=== PATIENT | female | born 2000 | race Caucasian/White ===

== ENCOUNTER 2025-02-25 09:44 | Emergency (ER) | payer OTHER, SELFPAY ==
[2025-02-25 10:22] VITALS: BP 130/82; PULSE 65; RESP 16; TEMP 36.9; O2SAT 98; BMI 17.6
--- NOTE | 2025-02-25 10:24 | ED.ABDPAIN ---
HPI - Abdominal Pain General Chief Complaint: Abdominal Pain Stated Complaint: Abd pain Time Seen by Provider: 02/25/25 11:41 Source: patient Mode of arrival: ambulatory Limitations: no limitations History of Present Illness ED Provider: HPI narrative: 24-year-old, finally has insurance, has a PCP appointment coming up in the next 1-2 weeks, postprandial abdominal pain for the past 1 year, worse at night, poor appetite states her dad has GERD she took his meds without improvement. No vaginal bleeding or fevers or chills. Related Data Previous Rx's ?Medication ?Instructions ?Recorded famotidine 40 mg tablet 40 mg PO BEDTIME 30 days #30 tabs 02/25/25 sucralfate 1 gram tablet (Carafate) 1 g PO Q6H 7 days #28 tabs 02/25/25 Allergies Allergy/AdvReac Type Severity Reaction Status Date / Time No Known Allergies Allergy Unverified 02/25/25 10:24 [No Known Allergies*] Review of Systems Constitutional: Reports as per HPI [facility] Social History Social History Do you have a plan to hurt others: No Plan Physical Exam ED Vital Signs: Vital Signs - 24 hr 02/25/25 10:22 Temperature 98.4 F Pulse Rate 65 Respiratory Rate 16 Blood Pressure 130/82 Pulse Oximetry 98 Oxygen Delivery Method Room Air BMI result Body Mass Index 17.6 Const Other: Gen: ?Overall well-appearing patient CV: RRR, no obvious murmurs appreciated Resp: ?No wheezing rales rhonchi no stridor moving air well Abd: ?Bowel sounds are present, negative Perez's sign, negative Rovsing's, epigastric tenderness mild MSK: FROM, strength 5/5 all extremities Skin: Warm, dry, intact, Neuro: ?Alert and oriented x3, moving upper and lower extremities symmetrically, no obvious facial asymmetry noted Course Course Course Narrative: 02/25/25 1024 ALLAN Enriquez This is a Rapid Medical Examination (RME) performed by Dago Pressley PA-C in triage. Full HPI, ROS, assessment and treatment plan per primary provider in the Main ED. Hx: 24 yo healthy F here w/ mom for eval of intermittent epigastric abd pain x months. assoc nausea w/o vomiting. scared to eat d/t pain, causing her to lose weight. does not have PCP to follow up with. PE/vitals: thin appearing Plan: screening labs, UA Medical Decision Making Medical Decision Making MDM Narrative: Blood work reassuring nothing to suspect some of the differential diagnoses as below this is a chronic issue, long discussion regarding dietary changes for acid reflux, GERD and she has an appointment coming up with the PCP, she did endorse poor diet Differential Diagnosis Differential Diagnoses: The differential diagnosis associated with the presentation includes Cholecystitis, pancreatitis, hepatitis, gastritis, cholangitis, choledocholithiasis, SBO, ACS Lab Data 02/25/25 10:48 02/25/25 10:48 Labs: Lab Results 02/25/25 Range/Units 10:48 WBC 7.3 (4.8-10.8) X10*3/uL RBC 4.41 (4.20-5.50) X10*6/uL Hgb 13.2 (12.0-16.0) g/dl Hct 40.2 (37.0-47.0) % MCV 91.2 (80.0-98.0) fL MCH 29.9 (27.0-33.0) pg MCHC 32.8 (31.0-35.0) g/dl RDW 13.6 (11.0-16.0) % Plt Count 256 (160-400) X10*3/uL MPV 10.0 (9.4-12.3) fL Immature Gran % (Auto) 0.3 (0.0-0.4) % Neut % (Auto) 56.9 (45-73) % Lymph % (Auto) 31.8 (20-40) % [place] % (Auto) 7.5 (2-11) % Eos % (Auto) 3.0 (0-4) % Baso % (Auto) 0.5 (0-2) % Lymph # (Auto) 2.3 (1.2-4.9) X10*3/uL [place] # (Auto) 0.6 (0.1-1.2) X10*3/uL Eos # (Auto) 0.2 (0.0-0.4) X10*3/uL Baso # (Auto) 0.0 (0.0-0.2) X10*3/uL Abs Immat Gran (auto) 0.02 (0.00-0.03) X10*3/uL Absolute Neuts (auto) 4.1 (2.0-8.3) x10*3/uL Absolute Nucleated RBC 0.000 (0.0-0.012) X10*3/uL Nucleated RBC % (auto) 0.0 (0.0-0.2) /100WBC Sodium 139 (135-145) mmol/L Potassium 3.5 (3.3-5.1) mmol/L Chloride 108 (96-108) mmol/L Carbon Dioxide 25 (22-29) mmol/L Anion Gap 10 L (12-20) BUN 15 (9-16) mg/dL Creatinine 0.88 (0.5-1.4) mg/dL Estim Creat Clear Calc 68.9 Estimated GFR > 60 Random Glucose 90 (60-115) mg/dL Calcium 9.9 (8.4-10.2) mg/dL Magnesium 1.9 (1.6-2.6) mg/dL Total Bilirubin 0.3 (0.0-1.0) mg/dL AST 21 (5-31) U/L ALT 14 (0-31) U/L Alkaline Phosphatase 55 (39-117) U/L Total Protein 7.9 (6.5-8.0) g/dL Albumin 5.2 H (3.5-5.0) g/dL Lipase 35 (8-78) U/L Discharge Plan Discharge Clinical Impression: Abdominal pain, epigastric Patient Disposition: Home, Self-Care Additional Instructions: For the next 1 week take a g of Carafate with food up to 4 times a day, remember we have discussed you need to have breakfast before he have any caffeine, just look up what constitutes a healthy diet, avoid anything spicy or fatty, I would avoid any acidic type of foods as well, and he will see your primary care physician in the week or 2, your blood work is reassuring there is no evidence that this is related to gallbladder your liver with the pancreas, and your exam and history is consistent with gastric irritation, your PCP may refer her to GI for endoscopy, H pylori testing neither which are done in ER. Any other issues or concerns come back to the ER Prescriptions: New sucralfate [Carafate] 1 gram tablet 1 g PO Q6H 7 Days Qty: 28 0RF famotidine 40 mg tablet 40 mg PO BEDTIME 30 Days Qty: 30 0RF Print Language: Croatian
[2025-02-25 10:54] LABS: MANUAL DIFF FLAG NO
[2025-02-25 10:59] LABS: Basophils Percent Auto 0.5 % (0-2); Eosinophils Absolute Auto 0.2 X10*3/uL (0.0-0.4); Hematocrit 40.2 % (37.0-47.0); Hemoglobin 13.2 g/dl (12.0-16.0); Imm Gran Abs Auto 0.02 X10*3/uL (0.00-0.03); Imm Gran Pct Auto 0.3 % (0.0-0.4); Lymphocytes Absolute Auto 2.3 X10*3/uL (1.2-4.9); Lymphocytes Percent Auto 31.8 % (20-40); Mean Corpuscular HGB Conc 32.8 g/dl (31.0-35.0); Mean Corpuscular Hemoglobin 29.9 pg (27.0-33.0); Mean Corpuscular Volume 91.2 fL (80.0-98.0); Monocytes Absolute Auto 0.6 X10*3/uL (0.1-1.2); Monocytes Percent Auto 7.5 % (2-11); Neutrophils Absolute Auto 4.1 x10*3/uL (2.0-8.3); Neutrophils Percent Auto 56.9 % (45-73); Platelet Count 256 X10*3/uL (160-400); Red Blood Count 4.41 X10*6/uL (4.20-5.50); Red Cell Distribution Width 13.6 % (11.0-16.0); White Blood Count 7.3 X10*3/uL (4.8-10.8)
[2025-02-25 11:16] LABS: Alanine Aminotransferase 14 U/L (0-31); Albumin Level 5.2 g/dL (3.5-5.0); Alkaline Phosphatase 55 U/L (39-117); Anion Gap 10 (12-20); Aspartate Amino Transferase 21 U/L (5-31); Bilirubin Total 0.3 mg/dL (0.0-1.0); Blood Urea Nitrogen 15 mg/dL (9-16); Calcium 9.9 mg/dL (8.4-10.2); Carbon Dioxide 25 mmol/L (22-29); Chloride 108 mmol/L (96-108); Creatinine Clr Calc Pharmacy 68.9; Estimated Glomerular Filt Rate > 60; Glucose Random 90 mg/dL (60-115); Lipase 35 U/L (8-78); Magnesium 1.9 mg/dL (1.6-2.6); Potassium 3.5 mmol/L (3.3-5.1); Sodium 139 mmol/L (135-145); Total Protein 7.9 g/dL (6.5-8.0)
[2025-02-25] MEDS: Famotidine 20 MG TABLET PO (12:11)
[2025-02-25] MEDS: Lidocaine HCl Viscous 2 % 15 ML SOLUTION PO (12:11)
[2025-02-25] MEDS: Magnesium Hydrox/Alum Hydrox 30 ML ORAL.SUSP PO (12:11)
[2025-02-25 12:22] VITALS: BP 125/77; PULSE 68; RESP 16; TEMP 37; O2SAT 97
[2025-02-25 12:25] VITALS: BP 125/77; PULSE 68; RESP 16; TEMP 37; O2SAT 97
== END 2025-02-25 12:25 | disposition home or self-care (01) ==
PROVIDERS: Physician Assistant Medical; Emergency Provider Emergency Medicine
DX: R10.13 Epigastric pain (principal)
CPT/HCPCS: 36415; 80053; 83690; 83735; 85025; 99283; 99284

== ENCOUNTER 2025-03-07 13:34 | Outpatient (AMB) | payer OTHER, MEDICAID, SELFPAY ==
--- NOTE | 2025-03-07 13:38 | A.OFFPC_ITS ---
Vital Signs 03/07/25 13:41 Height 5 ft 1.42 in Weight 94 lb 8 oz BMI 17.6 BP 120/60 Blood Pressure Location Lt brachial Position Sitting Pulse 81 Pulse Source Pulse Oximeter Temp 97.1 F Temp Source Temporal Artery Scan Pulse Oximetry (%) 99 Oxygen Delivery Method Room Air Intake Visit Reasons: establish care Intake Note: Patient is a new patient here to establish care for wellness visit. Transferring care from [facility]. Medical records have been requested and have not received. Dice Dealer Required: No Tc Operator: Present Accompanied by: Mother Allergies No Known Allergies (No Known Allergies*) Allergy (Verified 03/07/25 14:05) Medication List - Last Reconciled 03/07/25 by Shreya Casas PA-C famotidine 40 mg PO BEDTIME 30 days sucralfate (Carafate) 1 g PO Q6H 7 days Tobacco use date assessed: 03/07/25 Dental Screening Dental Screen Date: 03/07/25 Did you have a dental visit in the last 12 months?: Yes Did you have a dental problem in the last 6 months where you did not have access to dental care?: No Was dental information given to patient?: Patient has dentist HPI establish care HPI Details 24-year-old female coming to the office for the 1st time.? She was seen in [facility] ED 02/25/2025 for epigastric pain given 1 week of Carafate and send prescription for famotidine.? They recommended H pylori testing and possible referral to GI. Presenting with symptoms suggestive of gastroesophageal reflux disease. She reports experiencing intense acid reflux-like symptoms for almost a year, which have been affecting her sleep and work. She was prescribed famotidine and advised dietary modifications, which have provided some relief. No imaging was performed during her ER visit, and she was advised to continue dietary restrictions. The patient also reports nausea and vomiting, which occur almost daily, and has led to weight loss. A possible peptic ulcer disease is considered due to the persistent pain and nausea. Anxiety is noted, with the patient expressing mild symptoms but no current treatment beyond counseling. The patient has a history of irregular menstruation, previously managed with control, but currently experiencing occasional skipped cycles. [facility] Surgical History No pertinent past surgical history Family History Maternal Grandfather Skin cancer Prostate cancer Paternal Grandmother Breast cancer Social History Housing: Apartment Alcohol intake: never Patient Tobacco Use Status: Never used Tobacco e-Cigarette/Vaping Use: Never Used Second Hand Smoke Exposure: No Substance Use Type: Marijuana service: No Current occupational status: employed Current occupation: [employer] Cognitive needs: No Hearing needs: No Vision needs: No Female Reproductive History Menstrual control method: none Total pregnancies: 0 History of abnormal pap smear: No History of STI: No Questionnaire PHQ-9 Over the last 2 weeks, how often have you been bothered by any of the following problems? 1. Little interest or pleasure in doing things: not at all 2. Feeling down, depressed, or hopeless: not at all 3. Trouble falling or staying asleep, or sleeping too much: not at all 4. Feeling tired or having little energy: not at all 5. Poor appetite or overeating: not at all 6. Feeling bad about yourself - or that you are a failure or have let yourself or your family down: not at all 7. Trouble concentrating on things, such as reading the newspaper or watching television: not at all 8. Moving or speaking so slowly that other people could have noticed. Or the opposite - being so fidgety or restless that you have been moving around a lot more than usual: not at all 9. Thoughts that you would be better off or of hurting yourself in some way: not at all Total score: 0 Depression Screening Interpretation: Negative Depression Screening Done: Yes 79447 - PHQ-9 Billing: Yes Source: Developed by Drs. Luis Felipe Goldstein, Pat Servin, Oswaldo Thao and colleagues, with an educational margie from [employer]. Thrive Questionnaire Date Thrive assessed: 03/07/25 I am a: Patient What is your living situation today?: I have a steady place to live Within the past 12 months, did the food you bought not last and you didn't have the money to get more?: Never true Within the past 12 months, did you worry whether your food would run out before you got money to buy more?: Never true Do you have trouble paying for medicines?: No Do you have trouble getting transportation to medical appointments?: No Do you have trouble paying your heating and electricity bill?: No Do you have trouble taking care of your child, family member or friend?: No Do you have trouble with day-to-day activities such as bathing, preparing meals, shopping, managing finances, etc.?: No Are you currently unemployed and looking for a job?: No Are you interested in more education?: No Please select the resources that you would like help with: None Currently or been in a relationship where the following occur: No concerns reported THRIVE Score: 0 AUDIT C Alcohol Use Questionnaire (AUDIT-C) 1. How often do you have a drink containing alcohol?: Never Total Score: 0 ERICK-7 AMB Questionnaire ERICK-7 Date ERICK - 7 assessed: 03/07/25 Feeling nervous, anxious, or on edge: 0 = Not at all Not being able to stop or control worryin = Not at all Worrying too much about different things: 0 = Not at all Trouble relaxin = Not at all Being so restless that it is hard to sit still: 0 = Not at all Becoming easily annoyed or irritable: 0 = Not at all Feeling afraid as if something awful might happen: 0 = Not at all Total ERICK-7 score (0-4 normal; 5-9 mild; 10-14 moderate; 15-21 severe): 0 Source: Developed by Drs. Luis Felipe Goldstein, Pat Servin, Oswaldo Thao and colleagues, with an educational margie from [employer]. ERICK-7 Assessment Billing ERICK-7 Assessment Tool: ERICK-7 Assessment 07685 Review of Systems Const Denies body aches, Denies fatigue, Denies fever(s), Denies frequent falls, Denies headache(s) and Denies weakness Eyes Reports no additional complaints and Denies change in vision ENT Denies dysphagia, Denies dizziness, Denies headache(s) and Denies odynophagia Card Denies chest pain, Denies syncope, Denies irregular heart rhythm, Denies leg edema, Denies lightheadedness and Denies dyspnea Resp Denies cough and Denies dyspnea GI Details: no blood in the stool or vomiting Reports abdominal pain (epigastric pain ), Denies constipation, Denies dysphagia, Denies dyspepsia, Denies diarrhea, Reports nausea, Denies odynophagia and Reports vomiting Denies urinary frequency, Denies dysuria, Denies urinary hesitancy and Denies urinary urgency Musc Denies back pain and Denies myalgias Skin/Breast Reports system reviewed and no additional complaints, except as documented Neuro Denies dizziness, Denies syncope, Denies frequent falls, Denies headache(s) and Denies weakness Psych Reports no additional complaints Endo Denies fatigue Physical exam (Primary Care) Vital Signs: Last Vital Signs Temp 97.1 F 03/07/25 13:41 Pulse 81 03/07/25 13:41 BP 120/60 03/07/25 13:41 Pulse Ox 99 03/07/25 13:41 Oxygen Delivery Method Room Air 03/07/25 13:41 BMI result Body Mass Index 17.6 Tobacco/Smoking Status: Tobacco use Status Tobacco use date assessed 03/07/25 03/07/25 13:44 Patient Tobacco Use Status Never used Tobacco 03/07/25 13:50 e-Cigarette/Vaping Use Never Used 03/07/25 13:50 PHQ-9: PHQ-9 Score PHQ-9: Total score 0 03/07/25 13:50 Depression Screening Interpretation: Negative Thrive Assessment: Date of Thrive Assessment Date Thrive assessed 03/07/25 03/07/25 13:44 Currently or been in a relationship where the following occur: No concerns reported Const General: cooperative, healthy appearing, comfortable and no acute distress Orientation/consciousness: patient oriented x3 [facility] Head: Yes normocephalic Ears: hearing grossly normal bilaterally, external ears normal, TM's normal bilaterally and EAC's normal General nose exam: Normal external nose present Face and sinus: Yes normal facial exam and Yes sinuses nontender Mouth: Normal oral and palatal mucosa present and tongue normal Throat: Yes posterior oropharynx normal Eyes General: appearance normal, both eyes and all related structures Conjunctivae: conjunctivae normal Pupils: Equal, round and reactive pupils present EOM: EOMs intact bilaterally and No Nystagmus present Neck Neck: Yes normal visual inspection, Yes full ROM and Yes no lymphadenopathy Chest Chest palpation & inspection: normal inspection of the chest Resp Effort & Inspection: normal respiratory effort Auscultation: clear to auscultation bilaterally, no crackles, no rales, no rhonchi, no wheezes and breath sounds present Cardio Rate: regular rate Rhythm: regular rhythm Peripheral pulses: radial pulses present and dorsalis pedis present GI Inspection: Yes normal to inspection and No Abdominal wall edema Palpation (GI): Soft to palpation, not firm and nontender Auscultation: normal bowel sounds Rectal Exam - Female: deferred General: Yes no CVA tenderness Back/Spine/Pelvis Back: no CVA tenderness Skin General skin exam: no rashes or lesions noted Neuro General: patient oriented x3 Cranial nerves: Yes Equal, round and reactive pupils present, Yes Midline tongue present, Yes Ability to bilaterally elevate shoulders present and No Nystagmus present Gait exam (Neuro): Normal gait present Extrem General: Yes normal to inspection, Yes full ROM, No no pedal edema and No edema Psych Speech and movement: Normal speech and movement present Affect: normal affect Insight: Good insight present (Psych) Judgement: Good judgement present (Psych) Coding Level of Care Code New Pt Level 3 (85868) New Pt Prev Care 18-39yr(06500 Diagnoses Annual physical exam Z00.00 Abdominal pain, epigastric R10.13 GERD (gastroesophageal reflux disease) K21.9 Depression F32.A Anxiety F41.9 Irregular menses N92.6 Additional Codes ERICK-7 Assessment Billing - ERICK-7 Assessment Tool: ERICK-7 Assessment 42139 ([id number]) PHQ-9 - 65298 - PHQ-9 Billing: Yes ([id number]) Assessment & Plan Assessment & Plan (1) Annual physical exam: Code(s): Z00.00 - Encounter for general adult medical examination without abnormal findings Category: Medical Plan: Patient is overdue for Pap smear and referral was placed to gynecology today. I did order for blood work for basic evaluation. Patient is up-to-date on all recommended vaccinations for her age. Healthy diet and regular exercise is encouraged. (2) Abdominal pain, epigastric: Code(s): R10.13 - Epigastric pain Category: Medical Plan: Patient reporting chronic epigastric pain she was evaluated in the ED this concern and given Carafate and famotidine. Advised patient to continue on famotidine daily plan to obtain upper GI series for further evaluation. Referral was placed to GI at patient request as well. Also ordered for H pylori testing (3) GERD (gastroesophageal reflux disease): Code(s): K21.9 - Gastro-esophageal reflux disease without esophagitis Category: Medical Plan: Avoid trigger foods such as citrus, tomato products, soda, caffeine, spicy foods and other foods that may be irritating to your stomach. Avoid laying flat 3-4 hours after eating and elevate the head of the bed 30 degrees to prevent acid from moving into the esophagus. Continue on famotidine. See plan above as well. Patient was given informational packet about acid reflux. (4) Depression: Code(s): F32.A - Depression, unspecified Category: Medical Plan: Referral was placed for counseling today. Declining medical management. (5) Anxiety: Code(s): F41.9 - Anxiety disorder, unspecified Category: Medical Plan: See above (6) Irregular menses: Code(s): N92.6 - Irregular menstruation, unspecified Category: Medical Plan: Referral was placed to gynecology for further evaluation. Plan The patient will continue on famotidine and dietary modifications to manage gastroesophageal reflux disease symptoms. An upper GI series is recommended to evaluate for potential peptic ulcer disease, and an H. pylori test will be conducted via stool sample to rule out bacterial infection. The patient is advised to maintain a diet low in fatty and spicy foods to alleviate symptoms. A referral to a gas engine operator compressors is made to further investigate persistent symptoms and potential peptic ulcer disease. Additionally, a referral to a vp organizational development is provided to assist with dietary management. For anxiety, the patient is referred to a counselor for evaluation and management, with the option to explore medication if necessary in the future. Preventative care includes a referral for a gynecological evaluation and Pap smear due to overdue screening. The patient is also advised to follow up in three months to assess progress and review test results. The patient will receive a printout of dietary recommendations for managing acid reflux. This note was constructed using voice recognition software. While every effort has been made to ensure accuracy and animal daycare provider, still areas may have been included sometimes these areas may affect the content or meeting of the given s ymptoms. Total time spent caring for the patient today was 30 minutes. This includes time spent before the visit reviewing the chart, time spent during the visit, and time spent after the visit and documentation. Patient was informed and verbally consented to the use of an ambient scribe for clinic note documentation during this visit. Orders: Orders FL upper GI series Today K21.9 - Gastro-esophageal reflux disease without esophagitis, R10.13 - Epigastric pain Vitamin D 25-OH Total Today K21.9 - Gastro-esophageal reflux disease without esophagitis, Z00.00 - Encounter for general adult medical examination without abnormal findings H pylori Ag Stool Today R10.13 - Epigastric pain Vitamin B12 and Folate Today K21.9 - Gastro-esophageal reflux disease without esophagitis, Z13.21 - Encounter for screening for nutritional disorder Free T4 (Free Thyroxine) Today K21.9 - Gastro-esophageal reflux disease without esophagitis, Z00.00 - Encounter for general adult medical examination without abnormal findings TSH reflex Free T4 Today K21.9 - Gastro-esophageal reflux disease without esophagitis, Z00.00 - Encounter for general adult medical examination without abnormal findings Referrals Gastroenterology Referral K21.9 - Gastro-esophageal reflux disease without esophagitis, R10.13 - Epigastric pain Counseling Referral F32.A - Depression, unspecified, F41.9 - Anxiety disorder, unspecified PALLIATIVE CARE NURSE PRACTITIONER Referral N92.6 - Irregular menstruation, unspecified, Z12.4 - Encounter for screening for malignant neoplasm of cervix Concaving Machine Operator Nutrition Referral K21.9 - Gastro-esophageal reflux disease without esophagitis
[2025-03-07 13:41] VITALS: BP 120/60; PULSE 81; TEMP 36.2; O2SAT 99; BMI 17.6
== END 2025-03-07 14:26 | disposition home or self-care (01) ==
DX: Z00.00 Encounter for general adult medical examination without abnormal findings (principal); R10.13 Epigastric pain; K21.9 Gastro-esophageal reflux disease without esophagitis; F32.A Depression, unspecified; F41.9 Anxiety disorder, unspecified; N92.6 Irregular menstruation, unspecified

== ENCOUNTER → 2025-03-07 13:34 | Outpatient (BNVA) | payer OTHER, MEDICAID, SELFPAY | PROVIDERS: PCP Pediatrics | DX: Z00.00 Encounter for general adult medical examination without abnormal findings (principal); K21.9 Gastro-esophageal reflux disease without esophagitis; R10.13 Epigastric pain; F32.A Depression, unspecified; F41.9 Anxiety disorder, unspecified; N92.6 Irregular menstruation, unspecified | CPT/HCPCS: 96127 ==

== ENCOUNTER 2025-03-25 07:48 | Outpatient (REF) | payer OTHER, SELFPAY ==
--- NOTE | ~2025-03-25 | FL_ITS ---
EXAMINATION: XR FLUOROSCOPY UPPER GI SERIES CLINICAL INFORMATION: Patient complaining of epigastric pain, improving after taking acid blocking medication. 24-year-old female. COMPARISON: None TECHNIQUE: Fluoroscopic air contrast upper GI examination was performed utilizing standard techniques with thin and thick barium and effervescent granules. Numerous spot images were obtained. Several fluoroscopic image hold cine sequences were also obtained. FINDINGS: UPPER GI SERIES: Lateral cine images of the oropharynx and hypopharynx demonstrate normal swallow mechanism with normal epiglottic inversion and soft palate elevation. No laryngeal penetration, glottic or subglottic aspiration identified. No nasopharyngeal reflux present. Hypopharyngeal structures appear normal without evidence of mass or diverticulum. There was no significant cricopharyngeal achalasia. Dual and single contrast images of the esophagus demonstrate normal caliber, contour, and mucosal pattern. No evidence of stricture, mass, or ulcerations identified. Esophageal peristalsis was normal. No evidence of hiatus hernia identified. No significant gastroesophageal reflux was seen during the course of the examination and on reflux views. Dual contrast and single contrast images of the stomach demonstrated normal contour. There was diffuse thickening of the gastric rugal folds. There is prominence and thickening of the mucosal area gastricae. No discrete mass or gross erosion. Contrast freely passed into the gastric antrum and duodenal bulb with minimal delay. Single and air-contrast images of the duodenal bulb demonstrate no abnormality. The duodenal sweep has a normal appearance, course, and mucosal fold appearance. FLUOROSCOPY TIME: 2 minutes, 46 seconds Number of Spot Images:14 Number of cines obtained: 9 DOSE AREA PRODUCT: 1574 uGy-m2 (microgray-meter squared) FL/FL upper GI w air IMPRESSION: 1. Normal esophagus without evidence of gastroesophageal reflux noted during the examination. 2. Thickened gastric rugal folds and prominence of the area gastricae, in keeping with sequela of gastritis. 3. No evidence of hiatus hernia. 4. Remainder of the examination is normal. Electronically signed by: Yoni Grace MD 03/25/2025 08:30 AM EDT
== END 2025-03-25 07:49 | disposition home or self-care (01) ==
LOC: HO.XRAY 07:48
DX: R10.13 Epigastric pain (principal); K21.9 Gastro-esophageal reflux disease without esophagitis
CPT/HCPCS: 74246

== ENCOUNTER → 2025-03-25 07:50 | Outpatient (BNV) | payer OTHER, SELFPAY | PROVIDERS: Visit Provider Radiology Diagnostic Radiology | DX: K29.60 Other gastritis without bleeding (principal) | CPT/HCPCS: 74246 ==

== ENCOUNTER 2025-04-13 13:40 | Outpatient (REF) | payer OTHER, SELFPAY ==
[2025-04-13 16:28] LABS: Bacterial Vaginosis PCR POSITIVE (Negative); Candida Group PCR NOT DETECTED (Not Detect); Candida glab krusei PCR NOT DETECTED (Not Detect); Trichomonas vaginalis PCR NOT DETECTED (Not Detect)
[2025-04-13 16:59] LABS: CT PCR NOT DETECTED (Not Detect.); NG PCR NOT DETECTED (Not Detect.)
== END 2025-04-13 13:41 | disposition home or self-care (01) ==
LOC: HO.LNP 13:40
PROVIDERS: Visit Provider Advanced Practice Midwife
DX: Z01.419 Encounter for gynecological examination (general) (routine) without abnormal findings (principal); N92.6 Irregular menstruation, unspecified; N94.6 Dysmenorrhea, unspecified; Z11.3 Encounter for screening for infections with a predominantly sexual mode of transmission; Z79.899 Other long term (current) drug therapy; Z11.51 Encounter for screening for human papillomavirus (HPV); Z11.8 Encounter for screening for other infectious and parasitic diseases
CPT/HCPCS: 81515; 87491; 87591; 88175; 99385

== ENCOUNTER 2025-04-13 13:40 | Outpatient (AMB) | payer OTHER, SELFPAY ==
[2025-04-13 13:43] VITALS: BP 104/54; BMI 19.5
--- NOTE | 2025-04-13 13:43 | MHC.OFFVIS ---
Vital Signs 04/13/25 13:43 Height 5 ft 1 in Weight 103 lb 2 oz BMI 19.5 BP 104/54 L Blood Pressure Location Lt brachial Position Sitting Intake Visit Reasons: [employer] & ONLINE Irregular, Women's annual routine gynecological examination Utilities Equipment Repairer Required: No Allergies No Known Allergies (No Known Allergies*) Allergy (Verified 04/13/25 13:51) Medication List - Last Reconciled 04/13/25 by Melissa Marrufo LPN omeprazole 20 mg PO DAILY Is last menstrual period known: Yes Last menstrual period: 03/10/25 Post menopausal: No Patient : No (preg test neg) Do you need a note to return to daycare/school/sports/work: No HPI Comments Details: Patient is here for new patient annual exam and consult due to irregular menses. Menarche age 13, reports always had irregular cycles can skip up to a month, never > 2 months, ranges up to 45 days, and tracks on her phone. Cycles last 5-7 days, has menstrual cramping, 1-2 days of her cycle and uses a heating pad w/success, prefers not to take any medication. History of GI upset currently under care and feels better with improvement on medication. Female only partner. Denies any risk to . She tries to eat healthy and stays active with exercise. Works as [employer]. Denies family history of ovarian or colon cancer. Family history of breast cancer. First Pap smear. [facility] Surgical History No pertinent past surgical history Family History Maternal Grandfather Skin cancer Prostate cancer Paternal Grandmother Breast cancer Maternal Aunt Throat cancer Social History Housing: Apartment Alcohol intake: never Patient Tobacco Use Status: Never used Tobacco e-Cigarette/Vaping Use: Never Used Second Hand Smoke Exposure: No Substance Use Type: Marijuana service: No Current occupational status: employed Current occupation: [employer] Cognitive needs: No Hearing needs: No Vision needs: No Female Reproductive History Menstrual Age of Menarche: 13 Duration of menses: 3-5 days Date of last menstrual period: 03/10/25 control method: none Total pregnancies: 0 History of STI: No Review of Systems Const All systems reviewed & are unremarkable except as noted in HPI and below Reports as per HPI Eyes Reports no additional complaints ENT Reports no additional complaints Card Reports no additional complaints Resp Reports no additional complaints GI Reports as per HPI and Reports no additional complaints Reports as per HPI Musc Reports no additional complaints Skin/Breast Reports as per HPI Neuro Reports no additional complaints Psych Reports no additional complaints Endo Reports no additional complaints Rno/Lymph Reports no additional complaints Aller/Immun Reports no additional complaints Physical Exam Vital Signs: Last Vital Signs BP 104/54 L 04/13/25 13:43 BMI result Body Mass Index 19.5 Const General: cooperative, healthy appearing, no acute distress, well developed and alert Orientation/consciousness: patient oriented x3 HEENT Head: Yes normal to inspection Eyes General: appearance normal, both eyes and all related structures Neck Neck: Yes normal visual inspection Thyroid: Thyroid normal Chest Chest palpation & inspection: normal inspection of the chest and other (no puckering, dimpling, peau de orange, retraction, discharge, masses) Breast/axilla inspection: normal inspection of the breasts Breast/axilla palpation: normal palpation of the breasts Resp Effort & Inspection: normal respiratory effort GI Inspection: Yes normal to inspection Palpation (GI): Soft to palpation Rectal Exam - Female: deferred General: Yes bladder normal to palpation External Female Exam: normal external appearance and normal appearance of the urethra Speculum Exam - Vagina: normal appearance of the vagina, normal palpation and normal vaginal discharge Speculum Exam - Cervix: normal appearance of the cervix and normal palpation Bimanual exam- vagina & uterus: normal bimanual exam, normal palpation, uterine size normal, bladder normal to palpation, normal palpation and non-tender Bimanual Exam- Adnexa, other: no masses Skin General skin exam: no rashes or lesions noted Rashes: no rashes Neuro General: patient oriented x3 Cognition (Neuro): normal cognition Extrem General: Yes normal to inspection Psych Attitude: cooperative Thought process: Normal thought process present Results AMB Test Urine AMB Test Urine Negative Last Edit by Melissa Marrufo LPN on 04/13/25 13:57 Results Reviewed Results Reviewed: Laboratory Last Values Tst Clinic Negative 04/13/25 13:57 Assessment & Plan Assessment & Plan (1) Encounter for annual routine gynecological examination: Code(s): Z01.419 - Encounter for gynecological examination (general) (routine) without abnormal findings Plan: Discussed: Current recommendations for pap smears per ASCCP guidelines. Pap screening obtained. GC chlamydia and BV panel obtained. Breast awareness and periodic breast exams. Maintain a healthy lifestyle including a well balanced diet and routine exercise. Patient verbalizes understanding and agrees to the plan of care. She was given opportunity to ask questions and all questions were answered to the best of my ability. RTO in one year for annual obgyn hospitalist physician examination. This note is constructed using voice recognition software. While every effort has been made to ensure accuracy, instrument repairer steam plant errors may have been included. (2) Irregular menses: Code(s): N92.6 - Irregular menstruation, unspecified Category: Medical Plan: Monitor menstrual cycles, report any unscheduled bleeding, bleeding episodes <24 days apart or heavy/prolonged menstrual bleeding. Call the office for a follow up for any concerns. Reviewed cycle variations, if skipping more than 2 months call the office for a follow up evaluation. Maintain healthy weight extremes and BMI can cause hormonal disruption, affecting menstrual cycle. The patient expressed understanding and agreement with the plan of care. All of her questions and concerns were addressed to the best of my ability. (3) Encounter for well woman exam with routine gynecological exam: Code(s): Z01.419 - Encounter for gynecological examination (general) (routine) without abnormal findings Category: Medical (4) Dysmenorrhea: Code(s): N94.6 - Dysmenorrhea, unspecified Plan: Menstrual uauvtryg-mpvg-lnq-counter self-help measures, continue with heating pad for now due to GI concerns. Can consider future control for cycle control if needed. The patient expressed understanding and agreement with the plan of care. All of her questions and concerns were addressed to the best of my ability. Total time I personally spent on visit and management today: ?20 minutes. Time spent included review of pertinent office notes in the electronic health record; review of laboratory and imaging results; review of personal family medical history; performing physical exam; discussing diagnosis and plan of care with the patient; documenting the encounter in the EMR. Plan This note is constructed using voice recognition software. While every effort has been made to ensure accuracy, instrument repairer steam plant errors may have been included. Orders: Orders Bacterial Vaginosis Panel Today Z11.3 - Encounter for screening for infections with a predominantly sexual mode of transmission CT NG by PCR Vag/Cerv Today Z11.3 - Encounter for screening for infections with a predominantly sexual mode of transmission Pap Smear Today Z01.419 - Encounter for gynecological examination (general) (routine) without abnormal findings Coding Level of Care Code New Pt Prev Care [id number]([id number] Diagnoses Encounter for annual routine gynecological examination Z01.419 Irregular menses N92.6 Encounter for well woman exam with routine gynecological exam Z01.419 Dysmenorrhea N94.6
== END 2025-04-13 15:11 | disposition home or self-care (01) ==
LOC: HO.HWS 13:41
PROVIDERS: Visit Provider Advanced Practice Midwife
DX: Z01.419 Encounter for gynecological examination (general) (routine) without abnormal findings (principal); N92.6 Irregular menstruation, unspecified; N94.6 Dysmenorrhea, unspecified
CPT/HCPCS: 99385; 99459

== ENCOUNTER 2025-05-31 08:50 | Outpatient (AMB) | payer OTHER, SELFPAY ==
[2025-05-31 09:09] VITALS: BMI 22.0
--- NOTE | 2025-05-31 09:09 | MHC.AMNUTRGE ---
VS Expanded 05/31/25 09:09 06/01/25 13:10 Height 5 ft 1 in 5 ft 1 in Weight 116 lb 6.465 oz 116 lb BMI 22.0 21.9 Intake Visit Reasons: Gastro-esophageal reflux disease without esophagit Allergies No Known Allergies (No Known Allergies*) Allergy (Verified 04/13/25 13:51) Nutrition Presentation Details: Pt presents or MNT for GERD Pt presents with her mother during this appt Reports wt at 140 lbs a little over a yr ago, reports undergoing changes in routine/work/lack of insurance leading to increased GERD symptoms w pain/vomiting leading to weight loss. Pt reports feeling much better now and incorporating healthier food options. physical activity- enjoys jogging/running , 3-4 x per week etoh/smoking- denies BS Monitoring Most Recent Diabetes Results: Hemoglobin A1c 5.0 % 08/31/18 Cholesterol 180 MG/DL 08/31/18 HDL Cholesterol 51 MG/DL 08/31/18 Triglycerides 113 MG/DL 08/31/18 Creatinine, (0.5-1.4) 0.88 mg/dL 02/25/25 BUN, (9-16) 15 mg/dL 02/25/25 Sodium, (135-145) 139 mmol/L 02/25/25 Potassium, (3.3-5.1) 3.5 mmol/L 02/25/25 Chloride, (96-108) 108 mmol/L 02/25/25 Carbon Dioxide, (22-29) 25 mmol/L 02/25/25 Calcium, (8.4-10.2) 9.9 mg/dL 02/25/25 AST, (5-31) 21 U/L 02/25/25 ALT, (0-31) 14 U/L 02/25/25 Total Protein, (6.5-8.0) 7.9 g/dL 02/25/25 Albumin, (3.5-5.0) 5.2 g/dL H 02/25/25 XNE-Qnbhxfa-Vq.Jeor Equation Height: 5 ft 1 in Weight: 116 lb Resting Metabolic Rate: 1224.78 Calculated Activity Level: Moderate Activity Calories Needed to Maintain Weight: 1898.41 Diagnosis Nutrition problem #1: food nutri know defi As related to (etiology) #1: diagnosis As evidenced by (sign/symptom) #1: knowledge deficit of diet PFSH Surgical History No pertinent past surgical history Family History Maternal Grandfather Skin cancer Prostate cancer Paternal Grandmother Breast cancer Maternal Aunt Throat cancer Social History Housing: Apartment Alcohol intake: never Patient Tobacco Use Status: Never used Tobacco e-Cigarette/Vaping Use: Never Used Second Hand Smoke Exposure: No Substance Use Type: Marijuana service: No Current occupational status: employed Current occupation: [employer] Cognitive needs: No Hearing needs: No Vision needs: No Female Reproductive History Menstrual Age of Menarche: 13 Assessment & Plan Assessment & Plan (1) GERD (gastroesophageal reflux disease): Code(s): K21.9 - Gastro-esophageal reflux disease without esophagitis Category: Medical Plan: wt: 53 kg ( 06/09) Est kcal needs: 1999 (+500 ) prevention of weight loss est fluid needs (30 ml/kg bw) : 1600 sodium: 2300 mg/d or as per MD oreelena Modify the diet to prevent symptoms of GERD - Work on eating in a relaxed place and eating slowly -Eat small meals, low in fat (not fried, pre fried, choose low fat cooking and reduced on highly processed :salami, bologna, sausages, visible fats) -Choose low acid fruits : bananas, melons, pears, apple , apple juice, white grape juice -include at least 2-3 servings of low fat dairy as snack or as part of the meal (low fat milk, yogurt, , eat cheese sparingly , reduce on amount and frequency of foods with high content of cheese/cheese sauce due to high fat content -Reduce on caffeine : coffee, energy drinks, chocolate , caffeine beverages -Reduce on carbonated beverages -Reduce on onions, peppermint, alcohol, citrus, tomato and its sauces, alcohol , carbonated beverages - - see 1999 chino meal plan Coding Level of Care Code Nutr Indiv Intake (34782) Diagnoses GERD (gastroesophageal reflux disease) K21.9 Time Spent (min) 30
[2025-06-02 12:22] VITALS: BMI 21.9
== END 2025-05-31 09:47 | disposition home or self-care (01) ==
LOC: HO.ENCR 08:51
PROVIDERS: Visit Provider Dietitian, Registered
DX: K21.9 Gastro-esophageal reflux disease without esophagitis (principal)

== ENCOUNTER → 2025-05-31 08:50 | Outpatient (BNVA) | payer OTHER, SELFPAY | PROVIDERS: Visit Provider Dietitian, Registered | DX: K21.9 Gastro-esophageal reflux disease without esophagitis (principal) | CPT/HCPCS: 97802 ==

== ENCOUNTER 2025-06-07 14:32 | Outpatient (AMB) | payer OTHER, SELFPAY ==
[2025-06-07 14:37] VITALS: BP 112/64; PULSE 65; TEMP 36.3; O2SAT 98; BMI 22.1
--- NOTE | 2025-06-07 14:37 | A.OFFPC_ITS ---
Vital Signs 06/07/25 14:37 Height 5 ft 1 in Weight 117 lb BMI 22.1 BP 112/64 Blood Pressure Location Rt brachial Position Sitting Pulse 65 Pulse Source Pulse Oximeter Temp 97.3 F Temp Source Temporal Artery Scan Pulse Oximetry (%) 98 Oxygen Delivery Method Room Air Intake Visit Reasons: 3 mo follow up Weight Recorder Required: No Accompanied by: Self / Same As Patient Allergies No Known Allergies (No Known Allergies*) Allergy (Verified 06/07/25 15:13) Medication List - Last Reconciled 06/07/25 by Shreya Casas PA-C omeprazole 20 mg PO DAILY Tobacco use date assessed: 06/07/25 Dental Screening Dental Screen Date: 06/07/25 Did you have a dental visit in the last 12 months?: Yes Did you have a dental problem in the last 6 months where you did not have access to dental care?: No HPI 3 mo follow up HPI Details 24-year-old female with past medical his tory of GERD, depression, anxiety last seen 03/09 coming in for follow up. Presenting with a follow-up for gastroesophageal reflux disease management. The patient initially experienced significant stomach pain and acid reflux, which has now resolved with treatment. The patient was previously on famotidine and is now taking omeprazole daily, which has effectively managed her symptoms. The patient reports that she can now eat a wider variety of foods without triggering symptoms, although she avoids fatty and oily foods. The patient followed a dietary plan initially and has since reintroduced more foods into her diet. The patient has gained weight since the last visit, which is considered positive as she was previously underweight. No acute concerns today PFSH Surgical History No pertinent past surgical history Family History (Updated 06/07/25 @ 14:48 by Yamilex Cruz MA) Maternal Grandfather Skin cancer Prostate cancer Paternal Grandmother Breast cancer Maternal Aunt Throat cancer Mother No problems noted. Father No problems noted. Social History Housing: Apartment Alcohol intake: never Patient Tobacco Use Status: Never used Tobacco e-Cigarette/Vaping Use: Never Used Second Hand Smoke Exposure: No Substance Use Type: Marijuana service: No Current occupational status: employed Current occupation: [employer] Cognitive needs: No Hearing needs: No Vision needs: No Female Reproductive History Menstrual Age of Menarche: 13 Questionnaire PHQ-9 Over the last 2 weeks, how often have you been bothered by any of the following problems? 1. Little interest or pleasure in doing things: not at all 2. Feeling down, depressed, or hopeless: not at all 3. Trouble falling or staying asleep, or sleeping too much: not at all 4. Feeling tired or having little energy: not at all 5. Poor appetite or overeating: not at all 6. Feeling bad about yourself - or that you are a failure or have let yourself or your family down: not at all 7. Trouble concentrating on things, such as reading the newspaper or watching television: not at all 8. Moving or speaking so slowly that other people could have noticed. Or the opposite - being so fidgety or restless that you have been moving around a lot more than usual: not at all 9. Thoughts that you would be better off or of hurting yourself in some way: not at all Total score: 0 Source: Developed by Drs. Luis Felipe Goldstein, Pat Servin, Oswaldo Thao and colleagues, with an educational margie from [employer]. Thrive Questionnaire Date Thrive assessed: 06/07/25 I am a: Patient What is your living situation today?: I have a steady place to live Within the past 12 months, did the food you bought not last and you didn't have the money to get more?: Never true Within the past 12 months, did you worry whether your food would run out before you got money to buy more?: Never true Do you have trouble paying for medicines?: No Do you have trouble getting transportation to medical appointments?: No Do you have trouble paying your heating and electricity bill?: No Do you have trouble taking care of your child, family member or friend?: No Do you have trouble with day-to-day activities such as bathing, preparing meals, shopping, managing finances, etc.?: No Are you currently unemployed and looking for a job?: No Are you interested in more education?: No Please select the resources that you would like help with: None Currently or been in a relationship where the following occur: No concerns reported THRIVE Score: 0 AUDIT C Alcohol Use Questionnaire (AUDIT-C) 1. How often do you have a drink containing alcohol?: 2-4 times a month 2. How many drinks containing alcohol do you have on a typical day when you are drinking?: 3 or 4 3. How often do you have six or more drinks on one occasion?: Less than monthly Total Score: 4 ERICK-7 AMB Questionnaire ERICK-7 Date ERICK - 7 assessed: 06/07/25 Feeling nervous, anxious, or on edge: 0 = Not at all Not being able to stop or control worryin = Not at all Worrying too much about different things: 0 = Not at all Trouble relaxin = Not at all Being so restless that it is hard to sit still: 0 = Not at all Becoming easily annoyed or irritable: 1 = Several days Feeling afraid as if something awful might happen: 0 = Not at all Total ERICK-7 score (0-4 normal; 5-9 mild; 10-14 moderate; 15-21 severe): 1 Source: Developed by Drs. Luis Felipe Goldstein, Pat Servin, Oswaldo Thao and colleagues, with an educational margie from [employer]. Review of Systems Const Denies body aches, Denies chills and Denies fever(s) ENT Reports no additional complaints Card Reports no additional complaints Resp Reports no additional complaints GI Denies abdominal pain, Denies belching, Denies bloating, Denies constipation, Denies dyspepsia, Denies heartburn, Denies diarrhea, Denies vomiting and Denies other Reports no additional complaints Musc Reports no additional complaints Physical exam (Primary Care) Vital Signs: Last Vital Signs Temp 97.3 F 06/07/25 14:37 Pulse 65 06/07/25 14:37 BP 112/64 06/07/25 14:37 Pulse Ox 98 06/07/25 14:37 Oxygen Delivery Method Room Air 06/07/25 14:37 BMI result Body Mass Index 22.1 Tobacco/Smoking Status: Tobacco use Status Tobacco use date assessed 06/07/25 06/07/25 14:40 Patient Tobacco Use Status Never used Tobacco 06/07/25 14:40 e-Cigarette/Vaping Use Never Used 06/07/25 14:40 PHQ-9: PHQ-9 Score PHQ-9: Total score 0 06/07/25 14:48 Thrive Assessment: Date of Thrive Assessment Date Thrive assessed 06/07/25 06/07/25 14:40 Currently or been in a relationship where the following occur: No concerns reported Const General: cooperative, healthy appearing, comfortable and no acute distress Orientation/consciousness: patient oriented x3 HENMT Head: Yes normocephalic Ears: hearing grossly normal bilaterally General nose exam: Normal external nose present Eyes General: appearance normal, both eyes and all related structures Conjunctivae: conjunctivae normal Neck Neck: Yes full ROM and Yes no lymphadenopathy Resp Effort & Inspection: normal respiratory effort Auscultation: clear to auscultation bilaterally, no crackles, no rales, no rhonchi and no wheezes Cardio Rate: regular rate Rhythm: regular rhythm Skin General skin exam: no rashes or lesions noted Neuro General: patient oriented x3 Gait exam (Neuro): Normal gait present Extrem General: Yes normal to inspection, Yes full ROM and No edema Psych Affect: normal affect Attitude: cooperative Insight: Good insight present (Psych) Judgement: Good judgement present (Psych) Coding Level of Care Code Est Pt Level 3 (94219) Diagnoses Abdominal pain, epigastric R10.13 GERD (gastroesophageal reflux disease) K21.9 Assessment & Plan Assessment & Plan (1) Abdominal pain, epigastric: Code(s): R10.13 - Epigastric pain Category: Medical Plan: Abdominal pain has resolved at this time with the use of omeprazole and with dietary modification. (2) GERD (gastroesophageal reflux disease): Code(s): K21.9 - Gastro-esophageal reflux disease without esophagitis Category: Medical Plan: Avoid trigger foods such as citrus, tomato products, soda, caffeine, spicy foods and other foods that may be irritating to your stomach. Avoid laying flat 3-4 hours after eating and elevate the head of the bed 30 degrees to prevent acid from moving into the esophagus. Continue on Omeprazole. Patient was given informational packet about acid reflux. Plan This note was constructed using voice recognition software. While every effort has been made to ensure accuracy and supervisor braiding, still areas may have been included sometimes these areas may affect the content or meeting of the given symptoms. Total time spent caring for the patient today was 20 minutes. This includes time spent before the visit reviewing the chart, time spent during the visit, and time spent after the visit and documentation. Patient was informed and verbally consented to the use of an ambient scribe for clinic note documentation during this visit. Medications: Refilled omeprazole 20 mg PO DAILY 90 caps 2RF
== END 2025-06-07 15:22 | disposition home or self-care (01) ==
LOC: HO.HMCH 14:33
PROVIDERS: PCP Pediatrics
DX: R10.13 Epigastric pain (principal); K21.9 Gastro-esophageal reflux disease without esophagitis

== ENCOUNTER → 2025-06-07 14:32 | Outpatient (BNVA) | payer OTHER, SELFPAY | PROVIDERS: PCP Pediatrics | DX: K21.9 Gastro-esophageal reflux disease without esophagitis (principal); R10.13 Epigastric pain | CPT/HCPCS: 99212 ==

== ENCOUNTER 2025-06-28 10:25 | Outpatient (AMB) | payer OTHER, SELFPAY ==
--- NOTE | 2025-06-28 10:30 | A.OFFVIS_ITS ---
Vital Signs 06/28/25 10:31 Height 5 ft 2 in Weight 117 lb BMI 21.4 BP 119/53 L Blood Pressure Location Lt brachial Position Sitting Pulse 66 Pulse Oximetry (%) 98 Oxygen Delivery Method Room Air Intake Visit Reasons: Gerd Intake Note: Patient new consult for GERD. Patient cc: GERD on and off is much better with medication just at night time if she ate a lot she would become with abdominal pain., denies any other GI issues. Loom Technician Required: No Accompanied by: Self / Same As Patient Allergies No Known Allergies (No Known Allergies*) Allergy (Verified 06/28/25 10:30) HPI HPI Gerd: Details: Patient is a 24-year-old female with PMH of anxiety, depression. Referred by PCP for further evaluation of abdominal pain and acid reflux. Zohreh presents with a history of upper abdominal pain and reflux symptoms, initially starting three months ago with a recent exacerbation about one month prior to presentation. She describes previous episodes of regurgitation and emesis, occasionally progressing to vomiting of just fluids when severe. Symptoms have notably improved following the initiation of omeprazole, taken daily, predominantly in the morning, although medication is occasionally taken with coffee and breakfast. She denies current dysphagia and her appetite has returned to baseline after previously being reduced. She notes that consumption of spicy and fatty foods, as well as late-night eating (due to work schedule), aggravates her symptoms, particularly with pain localized to the epigastric region. She now tolerates a wider diet as symptoms have improved. Bowel movements are regular, with no reports of constipation, diarrhea, or GI bleeding. She has experienced notable weight fluctuations, with a recent increase from 103 lbs to the high teens, though her weight has previously ranged from the 90s to 140 lbs over the past two years. An recent upper GI series revealed normal esophagus, absence of hernia and reflux, but demonstrated gastritis with gastric wall thickening. Nausea, vomiting, and weight loss were evident but have improved on therapy. No current non-GI symptoms, comorbidities, or concurrent therapies affecting GI status were reported. Patient denies: fever/chills,appetite changes, dysphasia or melena/hematochezia. Social hx: -ETOH use Social, 2x/month, 3?4 drinks per occasion -smokes marijuana daily, denies other recreational drug use -non-smoker - family hx as below -denies personal hx of CA -denies significant cardiopulmonary history -no previous sedation/anesthesia history PFSH Medical History (Updated 06/28/25 @ 11:42 by Kirsten Velazquez CNP) Gastritis Surgical History No pertinent past surgical history Family History Maternal Grandfather Skin cancer Prostate cancer Paternal Grandmother Breast cancer Maternal Aunt Throat cancer Mother No problems noted. Father No problems noted. Social History Housing: Apartment Alcohol intake: never Patient Tobacco Use Status: Never used Tobacco e-Cigarette/Vaping Use: Never Used Second Hand Smoke Exposure: No Substance Use Type: Marijuana service: No Current occupational status: employed Current occupation: [employer] Cognitive needs: No Hearing needs: No Vision needs: No Female Reproductive History Menstrual Age of Menarche: 13 Review of Systems Const Reports as per HPI ENT Reports as per HPI Card Reports as per HPI Resp Reports as per HPI GI Reports as per HPI Reports as per HPI Physical Exam Vital Signs: Last Vital Signs Pulse 66 06/28/25 10:31 BP 119/53 L 06/28/25 10:31 Pulse Ox 98 06/28/25 10:31 Oxygen Delivery Method Room Air 06/28/25 10:31 BMI result Body Mass Index 21.4 Const General: healthy appearing, no acute distress and well developed Nutritional Appearance: average body habitus Orientation/consciousness: patient oriented x3 HEENT Head: Yes normal to inspection, Yes normocephalic and Yes atraumatic Face and sinus: Yes normal facial exam Eyes General: appearance normal, both eyes and all related structures Neck Neck: Yes normal visual inspection Resp Effort & Inspection: normal respiratory effort, able to speak in complete sentences, no tracheal deviation and symmetric chest movement Cardio Jugular venous distension: no JVD GI Inspection: Yes normal to inspection and No distended Palpation (GI): Soft to palpation, not firm, nontender and No hepatosplenomegaly present Auscultation: normal bowel sounds Neuro General: patient oriented x3 Gait exam (Neuro): Normal gait present Psych Appearance: grossly normal Mental Status: mental status grossly normal Speech and movement: Normal speech and movement present Affect: normal affect Attitude: cooperative Thought process: Normal thought process present Thought content: Normal thought content present Insight: Good insight present (Psych) Judgement: Good judgement present (Psych) Results Reviewed Results Reviewed: Date of Service: 03/25/25 Procedure(s): FL upper GI w air Accession Number(s): [id number] cc: Shreya Casas PA-C~ EXAMINATION: XR FLUOROSCOPY UPPER GI SERIES CLINICAL INFORMATION: Patient complaining of epigastric pain, improving after taking acid blocking medication. 24-year-old female. COMPARISON: None TECHNIQUE: Fluoroscopic air contrast upper GI examination was performed utilizing standard techniques with thin and thick barium and effervescent granules. Numerous spot images were obtained. Several fluoroscopic image hold cine sequences were also obtained. FINDINGS: UPPER GI SERIES: Lateral cine images of the oropharynx and hypopharynx demonstrate normal swallow mechanism with normal epiglottic inversion and soft palate elevation. No laryngeal penetration, glottic or subglottic aspiration identified. No nasopharyngeal reflux present. Hypopharyngeal structures appear normal without evidence of mass or diverticulum. There was no significant cricopharyngeal achalasia. Dual and single contrast images of the esophagus demonstrate normal caliber, contour, and mucosal pattern. No evidence of stricture, mass, or ulcerations identified. Esophageal peristalsis was normal. No evidence of hiatus hernia identified. No significant gastroesophageal reflux was seen during the course of the examination and on reflux views. Dual contrast and single contrast images of the stomach demonstrated normal contour. There was diffuse thickening of the gastric rugal folds. There is prominence and thickening of the mucosal area gastricae. No discrete mass or gross erosion. Contrast freely passed into the gastric antrum and duodenal bulb with minimal delay. Single and air-contrast images of the duodenal bulb demonstrate no abnormality. The duodenal sweep has a normal appearance, course, and mucosal fold appearance. FLUOROSCOPY TIME: 2 minutes, 46 seconds Number of Spot Images:14 Number of cines obtained: 9 DOSE AREA PRODUCT: 1574 uGy-m2 (microgray-meter squared) FL/FL upper GI w air IMPRESSION: 1. Normal esophagus without evidence of gastroesophageal reflux noted during the examination. 2. Thickened gastric rugal folds and prominence of the area gastricae, in keeping with sequela of gastritis. 3. No evidence of hiatus hernia. 4. Remainder of the examination is normal. Assessment & Plan Assessment & Plan (1) Gastritis: Code(s): K29.70 - Gastritis, unspecified, without bleeding Category: Medical Qualifiers: Gastritis type: unspecified gastritis Chronicity: chronic Gastritis bleeding: without bleeding Qualified Code(s): K29.50 - Unspecified chronic gastritis without bleeding Plan: Persistent epigastric symptoms, upper GI series with evidence of gastric inflammation, improvement with acid suppression, but incomplete resolution and concerning clinical history (vomiting, weight change). DDX: Non-ulcer dyspepsia, peptic ulcer disease, functional GI disorder, less likely malignancy (no current concerning findings but weight changes and refractory symptoms warrant further assessment). Additional Testing: - H. pylori breath test (after 2-week PPI hold; schedule on/after 07-13-2025) - Upper endoscopy for evaluation of persistent symptoms and weight changes Medication Management: - Hold omeprazole for 2 weeks prior to H. pylori testing - Start sucralfate up to BID as symptom management during PPI hold; avoid concurrent antacids within 30 min and separate medications by 2 hours - Resume omeprazole after breath test - If H. pylori positive, initiate standard triple/quadruple therapy and prescribe probiotic support as discussed Lifestyle Recommendations: - Continue to avoid dietary triggers (spicy, fatty foods) - Limit late-night eating, avoid meals <2?3 hours before bedtime - Take omeprazole appropriately (AM, empty stomach, 30 min before food/coffee) - Hydrate primarily with water - Limit alcohol to minimal social use; avoid NSAIDs unless necessary - Head-of-bed elevation for nocturnal symptoms Follow-Up: - Office follow-up after upper endoscopy and completion of H. pylori workup - Interim contact if symptoms worsen or new red-flag symptoms develop Plan Follow-up: -2 weeks with MA/RN for H. pylori testing -Next provider visit after EGD or sooner as needed Time: I spent a total of 30 minutes on the date of encounter which includes: Preparing to see the patient (reviewed previous documentation, test results and medical history) Performing a medically appropriate exam and/or evaluation Ordering medications, tests, and procedures Documenting clinical information in the health record Orders: Orders H Pylori Breath Test Today R10.13 - Epigastric pain Referrals GI Procedure Notification R10.13 - Epigastric pain, R11.2 - Nausea with vomiting, unspecified Medications: New sucralfate Take on tablet two times daily as needed. Take an empty stomach. Avoid antacids within 30 minutes. 1 g PO BID 90 tabs 1RF On Hold omeprazole Hold Comment: Doctor's Order 20 mg PO DAILY 90 caps 2RF Coding Level of Care Code New Pt New Pt Level 3 (33334) Patient Type New Diagnoses Chronic gastritis without bleeding, unspecified gastritis type K29.50 Gastritis type: unspecified gastritis Chronicity: chronic Gastritis bleeding: without bleeding
[2025-06-28 10:31] VITALS: BP 119/53; PULSE 66; O2SAT 98; BMI 21.4
== END 2025-06-28 11:29 | disposition home or self-care (01) ==
LOC: HO.HGI 10:26
PROVIDERS: Visit Provider Nurse Practitioner Family
DX: K29.50 Unspecified chronic gastritis without bleeding (principal)
CPT/HCPCS: 99203

== ENCOUNTER → 2025-06-28 10:25 | Outpatient (BNVA) | payer OTHER, SELFPAY | PROVIDERS: Visit Provider Nurse Practitioner Family | DX: R10.13 Epigastric pain (principal); K29.50 Unspecified chronic gastritis without bleeding; R11.2 Nausea with vomiting, unspecified | CPT/HCPCS: 99202 ==

== ENCOUNTER 2025-07-19 11:11 | Outpatient (REF) | payer OTHER, SELFPAY | END 2025-07-19 11:12 | disposition home or self-care (01) | LOC: HO.LNP 11:11 | PROVIDERS: Visit Provider Nurse Practitioner Family | DX: R10.13 Epigastric pain (principal) | CPT/HCPCS: 83013 ==